=== PATIENT | female | born 1940 | race Caucasian/White ===

== ENCOUNTER → 2018-07-03 | Day surgery (SDC) | payer MEDICARE, MEDICAID ==
[~2018-07-03] VITALS: Ht 152.4 cm; Wt 70.3 kg
[~2018-07-03] MED LIST: FENTANYL CITRATE/PF 50MCG/ML 2ML VIAL ONE; IOHEXOL-300 50 ML BOTTLE IV ONE; LIDOCAINE HCL 1% 20ML VIAL (Pyxis) INJ ONE; MIDAZOLAM HCL 2 MG/2 ML VIAL ONE; PROPOFOL 10MG/ML 100ML 0 ML IV ONE; PROPOFOL 200MG/20ML VIAL IV ONE
== END | disposition home or self-care (01) ==
LOC: OR 08:14
PROVIDERS: ATTEND Neurological Surgery
DX: M48.56XA Collapsed vertebra, not elsewhere classified, lumbar region, initial encounter for fracture (principal); M54.89 Other dorsalgia; M48.062 Spinal stenosis, lumbar region with neurogenic claudication; I10 Essential (primary) hypertension; Z86.73 Personal history of transient ischemic attack (TIA), and cerebral infarction without residual deficits
CPT/HCPCS: 22511; J2250; J3010; J3490; J7040; Q9967; J2704

== ENCOUNTER 2023-10-13 10:48 | Emergency (ER) | payer MEDICARE, MEDICAID ==
[~2023-10-13] VITALS: Ht 152.4 cm; Wt 73.0 kg
[2023-10-13 10:57] VITALS: O2SAT 100
[2023-10-13 11:24] LABS: BASOPHILS % 0.3 % (0.0-2.0); EOSINOPHILS % 1.9 % (0.0-5.0); HEMATOCRIT. 38.7 % (36.0-48.0); HEMOGLOBIN. 12.7 g/dL (12.0-16.0); LYMPHOCYTES % 25.2 % (20.0-50.0); MEAN CORPUSCULAR HEMOGLOBIN 27.6 pg (28.0-32.0); MEAN CORPUSCULAR HGB CONC 32.8 g/dL (31.0-37.0); MEAN CORPUSCULAR VOLUME 84.1 fL (81.0-99.0); MEAN PLATELET VOLUME 7.8 fl (7.4-10.4); MONOCYTES % 7.8 % (2.0-8.0); NEUTROPHILS % 64.8 % (40.0-76.0); PLATELET 316 x1000/uL (130-400); RED CELL DISTRIBUTION WIDTH 16.4 % (11.6-14.6); WHITE BLOOD COUNT 8.1 x1000/uL (4.5-11.0)
[2023-10-13 11:57] LABS: CHLORIDE 106 mEq/L (98-107); POTASSIUM 4.2 mEq/L (3.5-5.1); SODIUM 141 mEq/L (136-145)
[2023-10-13 11:58] LABS: CARBON DIOXIDE 26 mEq/L (21-32)
[2023-10-13 11:59] LABS: CALCIUM 9.3 mg/dL (8.7-10.4)
[2023-10-13 12:02] LABS: TROPONIN I HIGH SENSITIVITY 29 ng/L (3.0-34)
[2023-10-13 12:03] LABS: GLUCOSE 108 mg/dL (70-105)
[2023-10-13 12:04] LABS: UREA NITROGEN BLOOD 13 mg/dL (9-23)
[2023-10-13 12:05] LABS: ALANINE AMINOTRANSFERASE 20 IU/L (10-49); ALBUMIN 4.2 g/dL (3.2-4.8); ASPARTATE AMINOTRANSFERASE 42 IU/L (<34)
[2023-10-13 12:06] LABS: BILIRUBIN DIRECT 0.1 mg/dL (<=3.0); BILIRUBIN TOTAL 0.4 mg/dL (0.1-1.0); PROTEIN TOTAL 7.2 g/dL (6.0-8.3)
[2023-10-13] MEDS: SODIUM CHLORIDE 0.9% 250 ML IV ONE (13:16)
[2023-10-13 13:33] LABS: CLARITY URINE CLEAR (CLEAR); COLOR URINE YELLOW (YELLOW); GLUCOSE URINE NEGATIVE (NEGATIVE); KETONES URINE NEGATIVE (NEGATIVE); LEUKOCYTE ESTERASE URINE TRACE (NEGATIVE); NITRITE URINE NEGATIVE (NEGATIVE); OCCULT BLOOD URINE NEGATIVE (NEGATIVE); PROTEIN URINE NEGATIVE (NEGATIVE); SPECIFIC GRAVITY URINE 1.005 (1.005-1.030); UROBILINOGEN URINE 0.2 E.U./dL (0.2-1.0)
[2023-10-13 13:43] LABS: RBC URINE 0-2 /hpf (0-2); SQUAMOUS EPITHELIAL CELL URINE 1+ /lpf (RARE/1+); YEAST URINE NONE SEEN
[2023-10-13 13:44] LABS: BACTERIA URINE FEW
[2023-10-13 14:35] VITALS: BP 173/78; PULSE 79; RESP 18; TEMP 98
== END 2023-10-13 16:06 | disposition home or self-care (01) ==
LOC: ER 10:48
DX: K52.9 Noninfective gastroenteritis and colitis, unspecified (principal); R42 Dizziness and giddiness; E78.00 Pure hypercholesterolemia, unspecified; I10 Essential (primary) hypertension; Z98.890 Other specified postprocedural states; Z90.10 Acquired absence of unspecified breast and nipple
CPT/HCPCS: 36415; 71045; 80048; 80076; 81003; 84484; 85025; 93005; 99285